=== PATIENT | male | born 1985 | race Caucasian/White ===

== ENCOUNTER 2018-01-02 11:21 | Emergency (ER) | payer OTHER ==
[2018-01-02 11:48] VITALS: BP 107/100; PULSE 112; TEMP 98; BMI 34.7
[2018-01-02] MEDS ORDERED: COLCHICINE 0.6 MG TABLET (FP) PO ONE (12:28)
[2018-01-02] MEDS ORDERED: COLCHICINE 0.6 MG TABLET (FP) ONE (12:41)
--- NOTE | 2018-01-02 12:49 | PDOC ---
History of Present Illness - General Chief Complaint: Pain Stated Complaint: RT FOOT PAIN Time Seen by Provider: 01/02/18 12:18 History Source: Patient Exam Limitations: No Limitations - History of Present Illness Initial Comments: 01/02/18 12:41 32 y/o male with history of gout diagnosed 2 years ago by his PCP presents to the ED with pain to his right first toe base along with redness for the past 5 days worsening severity. Patient states last flareup was approximately 8 months ago and did respond well to colchicine. Patient states has not seen an pressroom foreman and continues to falls PCP for the above. Patient denies injury to affected area, fever, sensory changes distally, or swelling. Timing/Duration: constant, getting worse Severity: mild Associated Symptoms: reports: denies symptoms Past History - Travel Traveled outside of the country in the last 30 days: No - Past Medical History Allergies/Adverse Reactions: Allergies Allergy/AdvReac Type Severity Reaction Status Date / Time Penicillins Allergy Verified 01/02/18 11:43 Home Medications: Ambulatory Orders NK [No Known Home Medication] 01/02/18 COPD: No Other medical history: DENIES. - Suicide/Smoking/Psychosocial Hx Smoking History: Never smoked Patient Lives Alone: No Lives with/in: spouse/SO Review of Systems - Review of Systems Able to Perform ROS?: Yes Constitutional: No: Symptoms Reported Musculoskeletal: Yes: Joint Pain (right 1 st toe ) Integumentary: Yes: Erythema Neurological: No: Symptoms reported *Physical Exam - Vital Signs Last Vital Signs Temp Pulse Resp BP Pulse Ox 98 F 112 H 19 107/100 97 01/02/18 11:43 01/02/18 11:43 01/02/18 11:43 01/02/18 11:43 01/02/18 11:43 - Physical Exam General Appearance: Yes: Nourished, Appropriately Dressed. No: Apparent Distress Vascular Pulses: Dorsalis-Pedis (R): 2+ Extremity: positive: Normal Capillary Refill, Normal Range of Motion, Tender ( to right pip joint with noted erythema surrounding the joint. No increased warmth/deformity) Integumentary: positive: Erythema Neurologic: positive: Motor Strength 5/5 (ambulatory) Medical Decision Making - Medical Decision Making 01/02/18 12:44 Pt with gout flare up. Pt ordered for colchicine 1.2 mg then repeat dose of 0.6 mg in 1 hr. Pt also will be given referral to pressroom foreman. *DC/Admit/Observation/Transfer Diagnosis at time of Disposition: Gout Qualifiers: Gout site: toe Gout etiology: unspecified cause Chronicity: acute Laterality: right Qualified Code(s): M10.9 - Gout, unspecified - Discharge Dispostion Disposition: HOME Condition at time of disposition: Good - Referrals Referrals: Thom Dwyer MD, MD [Primary Care Provider] - - Patient Instructions Printed Discharge Instructions: DI for Gout Additional Instructions: Please take colchicine and one hour after given the first dose here in the ER. May continue with motrin as needed. Follow up with a pressroom foreman as discussed. - Post Discharge Activity
== END 2018-01-02 13:04 | disposition home or self-care (01) ==
LOC: JERFT 11:21
DX: M10.9 Gout, unspecified (principal)
CPT/HCPCS: 99281-25